=== PATIENT | female | born 1975 | race Caucasian/White ===

== ENCOUNTER 2016-11-04 16:07 | Emergency (ER) | payer OTHER ==
[~2016-11-04] VITALS: Ht 162.6 cm; Wt 92.0 kg
[~2016-11-04 16:07] MED LIST: CIPR500T4 PO; HYDR-3498 PO; TRAM50TA2 PO
[2016-11-04 16:15] VITALS: Ht 162.6 cm; Wt 92.0 kg
[2016-11-04] MEDS ORDERED: KETOROLAC 30 MG INJ IM STA (17:25)
[2016-11-04] MEDS ORDERED: IBUP-1542 PO (18:17)
[2016-11-04] MEDS ORDERED: OXYC-279 PO (18:17)
--- NOTE | 2016-11-04 18:27 | ERD ---
ER Documentation Chief Complaint Date/Time DATE: 11/04/16 TIME: 18:21 Chief Complaint PAIN & BRUISING ON LEFT FOOT S/P MUSCLE CRAMP DURING NIGHT [id number] HPI 41-year-old woman complaining of left medial foot and ankle pain which radiates along the medial aspect of the left foot and heel, pain worse with ambulation. The pain radiates upward as well and has been present for about 1 week. She denies any inversion injury, no trauma to the foot, no fevers or chills, no calf swelling, no chest pain or shortness of breath, no paresis or paresthesias. ROS All systems reviewed and are negative except as per history of present illness. Medications Home Meds Active Scripts Oxycodone HCl/Acetaminophen (Percocet 5-325 mg Tablet) 1 Each Tablet, 1 EACH PO TID for PAIN AND/OR INFLAMMATION, #12 TAB Prov:LUNA VALDEZ MD 11/04/16 Ibuprofen* (Ibuprofen*) 600 Mg Tablet, 600 MG PO Q8 for PAIN AND/OR INFLAMMATION , #30 TAB Prov:LUNA VALDEZ MD 11/04/16 Hydrocodone Bit-Acetaminophen* ([place]*) 5-325 Mg Tab, 1 TAB PO Q6 Y for PAIN, # 10 TAB Prov:RADHA CARTWRIGHT PA-C 11/30/15 Ciprofloxacin Hcl* (Ciprofloxacin Hcl*) 500 Mg Tablet, 500 MG PO BID for 3 Days , TAB Prov:RADHA CARTWRIGHT PA-C 11/30/15 Tramadol HCl (Tramadol HCl) 50 Mg Tablet, 50 MG PO Q4 Y for PAIN, #20 TAB Prov:CHARLENE MOORE NP 09/07/15 Allergies Allergies: Coded Allergies: No Known Allergy (Unverified , 11/04/16) PMhx/Soc None Medical and Surgical Hx: pt denies Medical Hx History of Surgery: Yes () Hx Miscellaneous Medical Probl: Yes (hyperlipidemia, hypertension) Hx Alcohol Use: No Hx Substance Use: No Hx Tobacco Use: No Smoking Status: Never smoker FmHx Family History: No diabetes Physical Exam Vitals Vital Signs Date Time Temp Pulse Resp B/P Pulse Ox O2 Delivery O2 Flow Rate FiO2 11/04/16 16:15 98.0 77 20 150/92 97 Physical Exam GENERAL: Well-developed, well-nourished, well-hydrated, in no apparent distress , looks nontoxic in appearance HEENT: Moist mucous membranes, pink conjunctiva, no cervical spine tenderness or step-off deformities, no goiter, no jaundice or icterus, extraocular movements intact without pain. No submandibular induration, and no pharyngeal erythema NEURO: Alert and oriented 3, cranial nerves II through XII intact bilaterally, pupils equal round reactive to light, no focal deficits or facial asymmetry, sensation intact distally Strength 5/5 in upper and lower extremities bilaterally CARDIAC: Regular rate and rhythm, no murmurs rubs or gallops LUNGS: Clear bilaterally no wheezing crackles or stridor ABDOMEN: Soft nontender, no guarding, no rigidity, no rebound, no psoas sign no obturator sign. Normoactive bowel sounds SKIN: Warm and dry to touch, mild contusion and inflammatory changes of the skin of the left medial foot without skin induration, no ulcers, no pustules. EXTREMITIES: No clubbing cyanosis or edema, calves are bilaterally symmetrical, no Homans sign, no popliteal cord sign. Distal pulses equal and bilateral PSYCH: Normal affect without agitation or irritability Results 24 hrs Current Medications Medications (Trade) Dose Ordered Sig/Anshul Route PRN Reason Start Time Stop Time Status Last Admin Dose Admin Ketorolac Tromethamine (Toradol) 30 mg ONCE STAT IM 11/04/16 17:25 11/04/16 17:26 DC Procedures/MDM I administered Toradol 30 mg intramuscular injection with good control of pain. Left foot and ankle were wrapped with Frandy elastic bandage for comfort and supportive measures. X-ray left foot 3V Interpreted by me: Bones: Large calcaneal spur, no acute fracture dislocation Joints: No dislocation Foreign body: None Patient has a large left calcaneal spur resulting in acute plantar fasciitis. This can be managed as an outpatient she is able to ambulate and has normal vital signs. Both verbal and written instructions were provided. Differential diagnoses considered, included but not limited to acute DVT, popliteal fossa cyst, foreign body, metabolic, hematologic, and electrolyte abnormalities. As well as abscess, cellulitis, fractures, and dislocations. Patient feels much better at this time, and vital signs are normal, symptoms have improved. I did give strict instructions to return to the ED if symptoms continue or worsen, patient will otherwise follow-up with primary care physician. Patient understood instructions and agreed to plan. Disclaimer: Inadvertent spelling or grammatical errors are likely due to EHR/ dictation software use and do not reflect on the overall quality of patient care. Departure Diagnosis: Primary Impression: Plantar fasciitis of left foot Additional Impression: Heel spur Laterality: left Qualified Code: M77.32 - Heel spur, left Condition: Good Patient Instructions: Heel Spur, Plantar Fasciitis LUNA VALDEZ MD November 04, 2016 18:27
--- NOTE | 2016-11-04 18:35 | RADRPT ---
PROCEDURE: XR Ankle. CLINICAL INDICATION: Left ankle pain. TECHNIQUE: Three views of the left ankle were performed. COMPARISON: None. FINDINGS: No acute fracture or dislocation is seen. The ankle mortise is symmetric. No radiopaque foreign body is identified. There are plantar and dorsal calcaneal spurs measuring 6 mm and 4 mm respectively. No significant soft tissue swelling is noted. IMPRESSION: 1. No acute fracture or dislocation. 2. Plantar and dorsal calcaneal spurs. RPTAT: HFN .Debi Turner MD, Date Time Electronically viewed and signed by .Debi Turner MD, MD on 11/04/2016 18:34 .N/
[2016-11-04 18:45] VITALS: BP 140/78; PULSE 78; RESP 20; TEMP 98.2
== END 2016-11-04 18:46 | disposition home or self-care (01) ==
LOC: FTE 16:07
DX: M72.2 Plantar fascial fibromatosis (principal); M77.32 Calcaneal spur, left foot; I10 Essential (primary) hypertension
CPT/HCPCS: 73610; 96372; 99284; J1885

== ENCOUNTER 2017-03-22 13:56 | Emergency (ER) | END 2017-03-22 15:56 | disposition home or self-care (01) | DX: T54.3X1A Toxic effect of corrosive alkalis and alkali-like substances, accidental (unintentional), initial encounter (principal); I10 Essential (primary) hypertension ==

== ENCOUNTER 2017-07-18 08:59 | Emergency (ER) | END 2017-07-18 11:45 | disposition home or self-care (01) ==

== ENCOUNTER 2018-07-03 15:03 | Emergency (ER) | payer OTHER ==
[~2018-07-03] VITALS: Ht 154.9 cm; Wt 93.0 kg
[~2018-07-03 15:03] MED LIST changes: -CIPR500T4 PO; +FIORICET PO; -HYDR-3498 PO; +IBUP-1542 PO; -TRAM50TA2 PO
[2018-07-03 15:25] VITALS: Ht 154.9 cm; Wt 93.0 kg
--- NOTE | 2018-07-03 18:22 | ERD ---
ER Documentation Chief Complaint Chief Complaint RUQ & RT FLANK PAIN X 2 WEEKS, SENT BY PMD R/0 MAGY HPI 43-year-old female history of hypertension ambulatory to the ED complaining of abdominal pain. Patient reports a 2-week history of worsening, moderate, crampy, right lower quadrant pain which radiates to the back. Denies nausea, vomiting, diarrhea or constipation but has noticed specks of blood in her stool. Denies dysuria, polyuria or hematuria. No vaginal discharge or bleeding. No relieving or exacerbating factors. Denies chest pain, palpitations, shortness of breath or cough. Patient was evaluated at [facility] by Dr Amanda Angeles and referred to the ED for further evaluation including CT scan. ROS All systems reviewed and are negative except as per history of present illness. Medications Home Meds Reported Medications Metoprolol Succinate* (Toprol XL*) 25 Mg Tab.sr.24h, 25 MG PO DAILY, #30 TAB 07/03/18 Discontinued Scripts Acetamin/Butalbital/Caffeine* (Fioricet*) [id number] Tab, 1 TAB PO Q4H PRN for PAIN LEVEL 1-5, #14 TAB Prov:TENA DHALIWAL MD 07/18/17 Ibuprofen* (Motrin*) 600 Mg Tab, 600 MG PO Q6, #20 TAB Prov:TENA DHALIWAL MD 07/18/17 Allergies Allergies: Coded Allergies: No Known Allergy (Unverified , 07/03/18) PMhx/Soc Reviewed in chart. As per HPI. History of Surgery: Yes () Anesthesia Reaction: No Hx Neurological Disorder: Yes (Migraine headaches) Hx Respiratory Disorders: No Hx Cardiac Disorders: Yes (hyperlipidemia, hypertension) Hx Psychiatric Problems: No Hx Miscellaneous Medical Probl: No Hx Alcohol Use: No Hx Substance Use: No Hx Tobacco Use: No FmHx No stroke or cancer Physical Exam Vitals Vital Signs Date Temp Pulse Resp B/P (MAP) Pulse Ox O2 O2 Flow FiO2 Time Delivery Rate 07/03/18 98.8 69 20 137/75 98 Room Air 23:49 (95) 07/03/18 72 21 129/80 99 Room Air 21:06 (96) 07/03/18 98.0 68 18 127/69 100 Room Air 19:51 (88) 07/03/18 98.5 69 18 150/85 99 15:25 (106) Physical Exam Const: No acute distress Head: Atraumatic Eyes: Normal Conjunctiva ENT: Normal External Ears, Nose and Mouth. Neck: Full range of motion. No meningismus. Resp: Clear to auscultation bilaterally Cardio: Regular rate and rhythm, no murmurs Abd: Soft, non tender, non distended. Normal bowel sounds Skin: No petechiae or rashes Back: No midline or flank tenderness Ext: No cyanosis, or edema Neur: Awake and alert Psych: Normal Mood and Affect Result Diagram: 07/03/18185507/03/181855 Results 24 hrs Laboratory Tests Test 07/03/18 18:56 07/03/18 19:15 White Blood Count 10.5 10^3/ul Red Blood Count 4.98 10^6/ul Hemoglobin 14.3 g/dl Hematocrit 44.1 % Mean Corpuscular Volume 88.6 fl Mean Corpuscular Hemoglobin 28.7 pg Mean Corpuscular Hemoglobin Concent 32.4 g/dl Red Cell Distribution Width 13.5 % Platelet Count 392 10^3/UL Mean Platelet Volume 9.1 fl Immature Granulocytes % 0.800 % Neutrophils % 61.5 % Lymphocytes % 24.7 % Monocytes % 7.7 % Eosinophils % 4.5 % Basophils % 0.8 % Nucleated Red Blood Cells % 0.0 /100WBC Immature Granulocytes # 0.080 10^3/ul Neutrophils # 6.5 10^3/ul Lymphocytes # 2.6 10^3/ul Monocytes # 0.8 10^3/ul Eosinophils # 0.5 10^3/ul Basophils # 0.1 10^3/ul Nucleated Red Blood Cells # 0.0 10^3/ul Urine Color YELLOW Urine Clarity CLEAR Urine pH 6.0 Urine Specific [place] 1.015 Urine Ketones NEGATIVE mg/dL Urine Nitrite NEGATIVE mg/dL Urine Bilirubin NEGATIVE mg/dL Urine Urobilinogen NEGATIVE mg/dL Urine Leukocyte Esterase NEGATIVE Charito/ul Urine Microscopic RBC 8 /HPF Urine Microscopic WBC 1 /HPF Urine Squamous Epithelial Cells FEW /HPF Urine Hemoglobin 2+ mg/dL Urine Glucose NEGATIVE mg/dL Urine Total Protein NEGATIVE mg/dl Sodium Level 137 mmol/L Potassium Level 3.9 mmol/L Chloride Level 105 mmol/L Carbon Dioxide Level 22 mmol/L Anion Gap 10 Blood Urea Nitrogen 14 mg/dl Creatinine 0.77 mg/dl Est Glomerular Filtrat Rate mL/min > 60 mL/min Glucose Level 86 mg/dl Calcium Level 9.2 mg/dl Total Bilirubin 0.0 mg/dl Direct Bilirubin 0.00 mg/dl Indirect Bilirubin 0.0 mg/dl Aspartate Amino Transf (AST/SGOT) 41 IU/L Alanine Aminotransferase (ALT/SGPT) 13 IU/L Alkaline Phosphatase 108 IU/L Total Protein 7.6 g/dl Albumin 4.3 g/dl Globulin 3.30 g/dl Albumin/Globulin Ratio 1.30 Lipase 87 U/L POC Beta HCG, Qualitative NEGATIVE Current Medications Medications Dose Sig/Anshul Start Time Status Last (Trade) Ordered Route PRN Stop Time Admin Dose Reason Admin Lactated 1,000 ml @ Q1H STAT 07/03/18 DC 07/03/18 Ringer's 1,000 mls/hr IV 18:55 19:03 07/03/18 19:54 Ketorolac 15 mg ONCE STAT 07/03/18 DC 07/03/18 Tromethamine IV 18:55 19:06 (Toradol) 07/03/18 18:57 IV Flush 10 ml STK-MED 07/03/18 DC 07/03/18 (NS 10 ml) ONCE .ROUTE 21:30 21:35 07/03/18 21:31 Sodium 100 ml @ ud STK-MED 07/03/18 DC 07/03/18 Chloride ONCE .ROUTE 21:30 21:35 07/03/18 21:31 Iohexol 150 ml STK-MED 07/03/18 DC 07/03/18 (Omnipaque ONCE .ROUTE 21:30 21:36 300mg/ ml) 07/03/18 21:31 Procedures/MDM DOCUMENTS REVIEWED: ED nurse, prior ED, prior records, clinic notes IMAGING: PROCEDURE: CT Abdomen and Pelvis with contrast. CLINICAL INDICATION: Abdominal pain TECHNIQUE: CT scan of the abdomen and pelvis with contrast was performed on a multi-detector high-resolution CT scanner. The patient was scanned following the uncomplicated intravenous administration of 100 cc of Omnipaque 300 IV contrast. Coronal and sagittal reformatted images were obtained from the axial source images. DICOM images are available. CTDI equals 21.8 or mGy, and DLP equals 1259.64 mGy-cm. One or more of the following dose reduction techniques were used: - Automated exposure control. - Adjustment of the mA and/or kV according to patient size. - Use of iterative reconstruction technique. COMPARISON: None. FINDINGS: Images the abdominal organs demonstrate the liver is large with a right lobe measuring 19 cm. No gallstones are seen within the gallbladder. There is no intra or extrahepatic ductal dilatation. The pancreas, spleen and adrenal glands are normal in appearance. There is symmetric contrast excretion within the kidneys. No hydronephrosis is seen. Images of the bowel loops demonstrate there are unremarkable without evidence of wall thickening or fatty stranding. The vessels are normal in appearance. Images demonstrate scattered small lymph nodes throughout the mesentery. Images of the pelvis demonstrate the visualized bowel loops are unremarkable. The appendix is visualized and is unremarkable. The bladder is filled. The reproductive organs are unremarkable. There is a peripherally enhancing hypodensity of the left ovary measuring 2.4 cm. The osseous structures are unremarkable. The lung bases are clear. IMPRESSION: CT of the abdomen pelvis demonstrates a left ovarian cyst measuring 2.4 cm. Hepatomegaly. RPTAT:[facility] Physician Hayley Date Time Electronically viewed and signed by Physician Hayley on 07/03/2018 21:12 RL/ REEXAMINATION/REEVALUATION: Time: 2218. Pain resolved. Abdomen soft nontender. MEDICAL DECISION MAKIN-year-old female history of hypertension ambulatory to the ED for evaluation of right lower quadrant abdominal pain. CBC negative for leukocytosis, anemia or thrombocytopenia. Chemistry reveals no evidence of renal insufficiency or electrolyte abnormalities. Urinalysis significant for mild microscopic hematuria but no WBCs, leukocyte esterase, nitrite or signs of urinary tract infection. CT of the abdomen and pelvis with intravenous contrast to evaluate for an acute intra-abdominal process including but not limited to appendicitis, diverticulitis, bowel obstruction, obstructive uropathy, biliary disease, pancreatitis, abdominal aortic aneurysm and neoplasm reveals hepatomegaly and a left ovarian cyst but is otherwise unremarkable for acute disease. Not . [employer] etiology including but not limited to ovarian torsion is unlikely and ultrasound deferred. Pain resolved with IV hydration and ketorolac. Pain resolved and repeat abdomen exam is unremarkable, without tenderness, rebound, guarding or signs of peritonitis. An occult neoplasm is not ruled out. Although the etiology of her symptoms is not established in the absence of signs of acute, serious disease she is stable for discharge with precautionary instructions and outpatient follow-up as counseled. Though the patient's latest blood pressure was elevated (>120/80), the patient has a known history of hypertension and urged to pursue adjustment of their medical therapy within a week with their primary care physician. Please refer to the medication reconciliation form for the current list of hypertensive m edications. Counseled patient regarding diagnostic workup, diagnosis and need for followup. Understands to return to ED if symptoms recur, worsen or any other concerns. Departure Diagnosis: Primary Impression: Right lower quadrant abdominal pain Additional Impressions: Abdominal pain of unknown etiology Left ovarian cyst Condition: Stable (Improved) MACKENZIE STALLINGS MD Jul 03, 2018 18:22
[2018-07-03] MEDS ORDERED: METO-335 PO (18:47)
[2018-07-03] MEDS ORDERED: KETOROLAC 15 MG INJ IV STA (18:55)
[2018-07-03] MEDS ORDERED: LACTATED RINGER'S 1,000 ML IV STA (18:55)
[2018-07-03] MEDS ORDERED: IOHEXOL 300MG/ML 150 ML BTL ONE (21:30)
[2018-07-03] MEDS ORDERED: SOD CHLORIDE 0.9% 100 ML ONE (21:30)
[2018-07-03 23:49] VITALS: BP 137/75; PULSE 69; RESP 20
== END 2018-07-03 23:52 | disposition home or self-care (01) ==
LOC: E/R 15:03
DX: N83.202 Unspecified ovarian cyst, left side (principal); I10 Essential (primary) hypertension
CPT/HCPCS: 36415; 74177; 80053; 81001; 81025; 83690; 85025; 96361; 96374; 99285; J1885; J7120; Q9967